=== PATIENT | female | born 1950 | race Caucasian/White ===

== ENCOUNTER 2020-07-09 08:27 | Inpatient (IN) | payer MEDICARE, MEDICAID ==
[2020-07-04 14:20] LABS: Basophils # (auto) 0.1 10 ^3/uL (0-0.2); Basophils % (auto) 1.1 % (0.0-2.0); Eosinophils # (auto) 0.3 10 ^3/uL (0-0.8); Eosinophils % (auto) 3.7 % (0.0-7.0); Hematocrit 37.6 % (36.0-46.0); Lymphocytes # (auto) 2.5 10 ^3/uL (0.4-5.4); Lymphocytes % (auto) 35.8 % (10.0-50.0); Mean Corpuscular Hgb Conc. 34.5 g/dL (32.0-36.0); Mean Corpuscular Volume 86.9 fL (80.0-100.0); Monocytes # (auto) 0.6 10 ^3/uL (0-1.3); Monocytes % (auto) 8.2 % (0.0-12.0); Neutrophils # (auto) 3.6 10 ^3/uL (1.6-8.6); Neutrophils % (auto) 51.2 % (37.0-80.0); Platelet Count (auto) 342 10^3/uL (140-450); Red Blood Cells 4.33 10^6/uL (4.0-5.20); Red Cell Distribution Width 13.8 % (11.8-14.3); White Blood Cell 7.1 10^3/uL (4.4-10.8)
[2020-07-04 14:51] LABS: INR 0.95 (0.9-1.15); Partial Thromboplastin Time 27.5 sec (23.0-31.2)
[2020-07-04 16:04] LABS: Potassium 3.9 mmol/L (3.5-5.1)
[2020-07-04 16:25] LABS: Albumin 3.7 g/dL (3.4-5.0); BUN/Creatinine Ratio 22.7; Bilirubin, Total 0.3 mg/dL (0.2-1.0); Calcium 9.4 mg/dL (8.5-10.1); Total Protein 6.9 g/dL (6.4-8.2)
[~2020-07-09] VITALS: Ht 160 cm; Wt 94.0 kg
[~2020-07-09 08:27] MED LIST: ALBUAER3 IN; DICY10CA PO; FLUT250M2 INH; HYDR-4924 PO; PREG75CA PO; SOLI5TAB7 PO; THYR60TA PO
[2020-07-09] MEDS ORDERED: CLINDAMYCIN 600MG IV 50 ML IV ONE (09:12)
[2020-07-09 09:17] LABS: Urine Bacteria NONE SEEN /hpf (None Seen); Urine Blood Negative /uL (Negative); Urine Specific Gravity 1.013 (1.001-1.035); Urine WBC 4 /hpf (0 - 5)
[2020-07-09] MEDS ORDERED: ROPIVACAINE 0.5% (5MG/ML) 20ML AMPULE IJ ONE (10:34)
[2020-07-09] MEDS ORDERED: MIDAZOLAM HCL 1MG/1ML-2 ML VIAL ONE (11:01)
[2020-07-09] MEDS ORDERED: fentaNYL CITRATE 100 MCG/2 ML VL ONE (11:01)
[2020-07-09] MEDS ORDERED: LIDOCAINE 2% (LOCAL ANESTH.) PF 5ml SDV ONE (11:03)
[2020-07-09] MEDS ORDERED: PROPOFOL 10 MG/ML 20 ML IV ONE (11:03)
[2020-07-09] MEDS ORDERED: methylPREDNISolone ACETATE 80 MG/ML VL ONE (11:22)
[2020-07-09] MEDS ORDERED: ONDANSETRON HCL 4 MG/2 ML VIAL IV PRN (12:00)
[2020-07-09] MEDS ORDERED: HYDROmorphone HCL 2 MG/ML VL IV PRN (12:00)
[2020-07-09] MEDS ORDERED: HYDROmorphone HCL 2 MG/ML VL ONE (15:43)
[2020-07-09] MEDS ORDERED: MORPHINE SULF INJ 2 MG/ML SYRINGE 1ML IV PRN (16:00)
[2020-07-09] MEDS ORDERED: NITROGLYCERIN 0.4 MG SL TAB SL PRN (16:00)
[2020-07-09 17:39] VITALS: BP 121/59
[2020-07-09] MEDS: HYDROmorphone HCL 2 MG/ML VL IV PRN ×2 (18:43→22:50)
[2020-07-09] MEDS: SODIUM CHLORIDE 0.9% 1,000 ML IV SCH (20:30)
[2020-07-09 22:02] VITALS: BP 126/84
[2020-07-10] MEDS: HYDROmorphone HCL 2 MG/ML VL IV PRN ×3 (02:45→12:28)
[2020-07-10 04:33] VITALS: BP 115/73
[2020-07-10] MEDS ORDERED: ALUM & MAG HYDROX-SIMETH LIQ(MAALOX) 30 ML PO PRN (06:45)
[2020-07-10] MEDS ORDERED: NITROGLYCERIN 0.4 MG SL TAB SL PRN (06:45)
[2020-07-10] MEDS ORDERED: ONDANSETRON HCL 4 MG/2 ML VIAL IV PRN (06:45)
[2020-07-10] MEDS ORDERED: LEVOTHYROXINE SODIUM 25 MCG TAB PO ONE (06:45)
[2020-07-10] MEDS ORDERED: HYDROcodone-ACET 5/325MG TAB PO PRN (06:45)
[2020-07-10] MEDS ORDERED: ACETAMINOPHEN 325 MG TAB PO PRN (06:45)
[2020-07-10] MEDS ORDERED: MORPHINE SULF INJ 2 MG/ML SYRINGE 1ML IV PRN ×2 (06:45)
[2020-07-10] MEDS ORDERED: DOCUSATE SOD 100 MG CAP PO PRN (06:45)
[2020-07-10] MEDS ORDERED: LORazepam 0.5 MG TAB PO PRN (06:45)
[2020-07-10] MEDS ORDERED: LEVOTHYROXINE SODIUM 25 MCG TAB PO SCH (07:00)
[2020-07-10] MEDS ORDERED: THYROID 60 MG TAB PO SCH (07:00)
[2020-07-10 08:43] LABS: Basophils # (auto) 0 10 ^3/uL (0-0.2); Basophils % (auto) 0.6 % (0.0-2.0); Eosinophils # (auto) 0 10 ^3/uL (0-0.8); Eosinophils % (auto) 0.5 % (0.0-7.0); Hematocrit 38.5 % (36.0-46.0); Hemoglobin 13.3 g/dL (12.2-16.2); Lymphocytes # (auto) 1.3 10 ^3/uL (0.4-5.4); Mean Corpuscular Hgb Conc. 34.5 g/dL (32.0-36.0); Monocytes # (auto) 0.6 10 ^3/uL (0-1.3); Monocytes % (auto) 6.5 % (0.0-12.0); Neutrophils # (auto) 6.8 10 ^3/uL (1.6-8.6); Neutrophils % (auto) 77.4 % (37.0-80.0); Nucleated Red Blood Cells % 0.1 %; Platelet Count (auto) 332 10^3/uL (140-450); Red Blood Cells 4.43 10^6/uL (4.0-5.20); Red Cell Distribution Width 13.8 % (11.8-14.3); White Blood Cell 8.8 10^3/uL (4.4-10.8)
[2020-07-10 08:48] VITALS: BP 115/83
[2020-07-10 09:03] LABS: Anion Gap 7 (5-15); Blood Urea Nitrogen 14 mg/dL (7-18); Calcium 9.2 mg/dL (8.5-10.1); Carbon Dioxide 27 mmol/L (21-32); Chloride 106 mmol/L (98-107); Glucose 107 mg/dL (74-106); Potassium 3.6 mmol/L (3.5-5.1); Sodium 140 mmol/L (136-145)
[2020-07-10 09:08] LABS: BUN/Creatinine Ratio 22.2; Cholesterol 179 mg/dL (< 200); GFR African American 120 mL/min; GFR Non-African American 100 mL/min; HDL Cholesterol 57 mg/dL (40-59); LDL Cholesterol 113 mg/dL (< 100); Triglycerides 58 mg/dL (< 150)
[2020-07-10] MEDS: SODIUM CHLORIDE 0.9% 1,000 ML IV SCH (12:28)
[2020-07-10 13:00] VITALS: BP 129/66
[2020-07-10 13:59] VITALS: BP 115/83
[2020-07-10] MEDS ORDERED: CLINDAMYCIN 600MG IV 50 ML IV SCH (14:00)
[2020-07-10] MEDS ORDERED: CLINDAMYCIN 600 MG/4 ML VL IM SCH (14:00)
== END 2020-07-10 15:30 | disposition home or self-care (01) | DRG 42 ==
LOC: SUR 08:27 → TELE 15:58 → TELE-CENTR 16:47
PROVIDERS: ADMIT Hospitalist; ATTEND Internal Medicine
PROC: 01NG0ZZ Release Tibial Nerve, Open Approach (ICD-10-PCS; principal; 2020-07-09 10:58)
DX: G57.51 Tarsal tunnel syndrome, right lower limb (principal); Z20.822 Contact with and (suspected) exposure to COVID-19; Z79.51 Long term (current) use of inhaled steroids; Z88.9 Allergy status to unspecified drugs, medicaments and biological substances
CPT/HCPCS: 36415; 80048; 80053; 80061; 81001; 83036; 84484; 85025; 85610; 85730; 87040; G0378; J2001; J2250; J2704; J3490